=== PATIENT | female | born 1990 | race Caucasian/White ===

== ENCOUNTER 2025-02-09 05:05 | Emergency (ER) | payer BC, SELFPAY ==
[2025-02-09 05:05] VITALS: BMI 22.3
[2025-02-09 05:10] VITALS: BP 113/83
[2025-02-09 05:25] VITALS: BP 102/72
[2025-02-09 05:55] LABS: % Basophils 0.4 % (0-2); % Eosinophils 3.2 % (0-6); % Immature Granulocytes 0.2 % (0-0.5); % Lymphocytes 16.3 % (20.5-51.1); % Monocytes 8.2 % (1.7-9.3); % Neutrophils 71.7 % (42.2-75.2); Absolute Eosinophils 0.2 10^3/uL (0-0.7); Absolute Lymphocytes 0.8 10^3/uL (1.2-3.4); Absolute Monocytes 0.4 10^3/uL (0.1-0.6); Absolute Neutrophils 3.6 10^3/uL (1.4-6.5); Hematocrit 35.7 % (37.0-47.0); Hemoglobin 12.3 g/dL (12.0-16.0); Mean Corp Hgb Conc. 34.5 g/dL (33.0-37.0); Mean Corpuscular Hgb 28.5 pg (27.0-31.0); Mean Corpuscular Volume 82.8 fL (81.0-99.0); Mean Platelet Volume 10.1 fL (7.4-10.4); Nucleated Red Blood Cells % 0 %; Platelet Count 260 10^3/uL (130-400); Red Blood Cell Count 4.31 10^6/uL (4.20-5.40); Red Cell Dist. Width 12.7 % (11.5-14.5)
[2025-02-09 06:00] VITALS: BP 101/72
[2025-02-09 06:19] LABS: ALT (SGPT) 24 U/L (0-35); AST (SGOT) 27 U/L (14-36); Albumin 3.6 g/dl (3.5-5.0); Alkaline Phosphatase 53 U/L (38-126); Blood Urea Nitrogen 14 mg/dl (7-17); Calcium 9.3 mg/dl (8.4-10.2); Carbon Dioxide 26 mmol/L (22-30); Chloride 109 mmol/L (98-107); Estimated Creatinine Clearance 98 ml/min; Glucose 107 mg/dl (70-99); Potassium 4.1 mmol/L (3.5-5.1); Sodium 141 mmol/L (135-145); Total Bilirubin 0.5 mg/dl (0.2-1.3); eGFR > 60.00
[2025-02-09 06:21] LABS: C-Reactive Protein < 5.00 mg/L (0.0-10.00)
--- NOTE | 2025-02-09 06:26 | ED.MUSCINJ ---
HPI-Injury
General
Chief Complaint: Musculo-Skeletal Complaint
Source: patient
Exam Limitations: none
Time Seen by Provider: 02/09/25 06:07
History of Present Illness-Injury
Initial Injury comments:
34-year-old female presents with sudden onset of polyarthralgia over the past several days. She notes a slight sore throat associated with this and a faint rash over her arms. For the rash she took Benadryl and since then the rash has improved.
She denies runny nose cough or significant fatigue. She states she is not sleeping because of the discomfort and is tired due to this. She denies any tick bites. No abdominal pain or vomiting. No shortness of breath or chest pain. No obvious
joint swelling. She denies neck or back pain. Her joint pain is most pronounced in her fingers and her shoulders but she feels it in her knees and her ankles as well.
Past History
Past History
ED Past Medical History: None; Negative Asthma, HTN, Hypercholesterolemia or NIDDM
ED Past Surgical History: None
Social History
Tobacco: Non-smoker
Alcohol: Occasional
Personal:
Living: with family
Phy Exam
Physical Exam
Physical Exam:
General: Well-appearing female no acute respiratory distress
HEENT: Normocephalic atraumatic posterior pharynx slightly erythematous no exudate neck is supple no obvious lymphadenopathy no trismus or drooling
Heart: Regular rate and rhythm no murmurs
Lungs: Clear no wheeze
Skin: Faint lacy rash over the forearms bilaterally
Extremities: No cyanosis
Musculoskeletal exam: No joint swelling or effusions noted but painful passive motion of the shoulders
Neurologic exam: No nuchal rigidity no meningeal signs
Injury Course
Orders/Labs/Results
Orders:
Orders
02/09/25 05:36
CRP [C-Reactive Protein] Urgent
Complete Blood Count/With Diff Urgent
Comprehensive Metabolic Panel Urgent
Creatine Phosphokinase Urgent
Comment: ADD ON
Lyme Progressive Urgent
Monotest Urgent
Comment: ADD ON
Sed Rate [Erythrocyte Sed Rate] Urgent
02/09/25 06:23
0.9% Sodium Chloride 1000 ml [Nss] 1,000 ml IV BOLUS
Ketorolac [Toradol] 15 mg IV NOW STA
02/09/25 06:24
Add On- LAB Urgent
Tests Added?: monotest
02/09/25 06:25
Add On- LAB Urgent
Tests Added?: cpk
02/09/25 06:36
COVID-19 Antigen Urgent
Source: Nasal Swab
Influenza A+B Rapid Molecular Urgent
KAREN Source: Nasal Swab
Specimen Description:
Rapid Strep Group A Urgent
KAREN Source: Throat/Pharynx
Specimen Description:
Date Specimen was Collected: 02/09/25
Time Specimen was Collected: 06:34
Throat Culture [Throat Culture, Comprehensive] Urgent
KAREN Source: Throat/Pharynx
Specimen Description:
Date Specimen was Collected: 02/09/25
Time Specimen was Collected: 06:34
02/09/25 07:19
JENELLE, IgG Reflex to HEp-2 [S] Urgent
Double Stranded DNA Antibody IGG [ds-DNA Ab, IgG Reflex To Titer] [S] Urgent
Ehrlichia chaffeensis Ab Panel [S] Urgent
Rheumatoid Factor [Rheumatoid Agglutinin] Urgent
Babesia Smear [Blood Parasites] Urgent
KAREN Source: Blood/Venous
Specimen Description:
02/09/25 08:37
Dexamethasone Sod Phosphate [Decadron] 10 mg IV NOW STA
Abnormal Lab Results
02/09/25
05:36
Hct 35.7 L %
(37.0-47.0)
Absolute Lymphs (auto) 0.8 L 10^3/uL
(1.2-3.4)
Lymphocytes % 16.3 L %
(20.5-51.1)
Chloride 109 H mmol/L
(98-107)
Glucose 107 H mg/dl
(70-99)
Total Protein 6.0 L g/dl
(6.3-8.2)
02/09/25 05:36
02/09/25 05:36
MDM/Problems Addressed
Differential Diagnosis Includes:
Sudden onset of polyarthralgia, rash and sore throat. Differential could include viral illness versus Lyme versus strep throat. Will check for rhabdomyolysis. Lyme test pending monotest pending rapid strep and throat culture ordered. CPK
ordered. CRP ordered through triage which is negative. Fluids ordered Toradol ordered. No meningeal signs on exam.
*Critical Care Note
Total Time (30-74mins, 75-104mins- exclusive of procedures): Not Applicable
Update Note
Update Note:
Extensive workup here essentially unremarkable with negative rapid strep, mono. Labs reviewed without significant finding. There are several test pending. Patient does note improved with Toradol and subsequently Decadron. She still notes
polyarthralgia but there is improvement. No fever noted here. She has an appointment with her family doctor tomorrow which I advise she keep. Stable for discharge
ED Attending Note
-
Portions of this chart may have been created with voice recognition software.� Occasional wrong word or��sound alike� substitutions may have occurred due to the inherent limitations of voice recognition software.
Discharge Plan
Departure
Patient Disposition: Home (Routine Discharge)
Date of Disposition: 02/09/25
Time of Disposition: 09:41
Patient with high blood pressure during this ER visit?: No
Discharge Problem:
Polyarthralgia
Instructions: Muscle and Bone Pain (DC)
Prescriptions:
New
prednisone 10 mg Tablet
See Rx Instructions .ROUTE .COMPLEX Qty: 30 0RF
Rx Instructions:
Take By Mouth:
40 mg daily x3 days, 30 mg daily x3 days,
20 mg daily x3 days, 10 mg daily x3 days.
Referrals:
UNKNOWN - PT DOES,NOT KNOW [Family Provider] -
Activity Restrictions/Additional Instructions:
Take steroid as directed. Return here if worse otherwise follow-up with your doctor as planned
Interventions
Interventions:
*Risk Screen - Suicide Last Done: 02/09/25 05:10
*General Assessment Last Done: 02/09/25 05:10
*Neglect/Abuse Screening Last Done: 02/09/25 05:10
*ED COVID-19 Vaccine History Last Done: 02/09/25 05:10
ED-Musculoskeletal Assessment Last Done: 02/09/25 05:44
Discharge Date and Time
Print Language: NEPALI
[2025-02-09] MEDS: TORADOL 15 MG IV (06:29)
[2025-02-09] MEDS: NSS 1000 IV (06:30)
[2025-02-09 07:00] VITALS: BP 97/68
[2025-02-09 07:13] LABS: COVID-19 Antigen Negative (Negative)
[2025-02-09 07:53] LABS: Erythrocyte Sed Rate 8 mm/hour (0-20)
[2025-02-09 08:14] LABS: Creatine Phosphokinase 72 U/L (30-135)
[2025-02-09 08:52] LABS: Monotest Negative (Negative)
[2025-02-09] MEDS: DECADRON 10 MG IV (09:27)
[2025-02-09 13:23] LABS: Rheumatoid Agglutinin Positive (<10 IU)
[2025-02-09 13:23] LABS: Lyme Antibody Screen, EIA Negative (Negative)
[2025-02-09 14:44] LABS: Rheumatoid Agg. Semi-quant 128 IU
[2025-02-11 03:15] LABS: ANA, IgG Reflex to HEp-2 Detected (None Detected)
== END 2025-02-09 10:37 | disposition home or self-care (01) ==
LOC: EMR 05:05
PROVIDERS: Emergency Medicine; Physician Assistant; EMERGENCY PHYSICIAN Emergency Medicine
DX: M25.50 Pain in unspecified joint (principal)
CPT/HCPCS: 99283; 96374; 96375; 80053; 82550; 85025; 85652; 86038; 86140; 86225; 86308; 86430; 86431; 86618; 86666; 87015; 87070; 87207; 87502; 87811; 87880